=== PATIENT | male | born 2000 ===

== ENCOUNTER 2020-01-24 04:15 | Emergency (ER) | payer OTHER, BC ==
[2020-01-24] MEDS ORDERED: SODIUM CHLORIDE 0.9% 1,000 ML IV STA (04:57)
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
[2020-01-24 05:20] LABS: Basophils # (A) 0.1 k/uL (0-0.2); Basophils % (A) 1 %; Eosinophils # (A) 0.1 k/uL (0-0.7); Eosinophils % (A) 1 %; HCT 46.8 % (39.0-53.0); HGB 16.4 gm/dL (13.0-17.5); Lymphocytes # (A) 1.3 k/uL (1.0-4.8); Lymphocytes % (A) 15 %; MCH 30.9 pg (25.0-35.0); Mean Platelet Volume 6.8; Monocytes # (A) 0.4 k/uL (0-1.0); Monocytes % (A) 5 %; Neutrophils # (A) 6.6 k/uL (1.3-7.7); Neutrophils % (A) 77 %; Platelet Count 239 k/uL (150-450); RBC 5.32 m/uL (4.30-5.90); RDW 12.4 % (11.5-15.5); WBC 8.6 k/uL (3.8-10.6)
[2020-01-24 05:28] LABS: ALT 21 U/L (4-49); AST 25 U/L (17-59); African American GFR (CKD) >90 (>60 ml/min/1.73 sqM); Albumin 4.6 g/dL (3.5-5.0); Alcohol <10 mg/dL; Alkaline Phosphatase 59 U/L (38-126); Anion Gap 7 mmol/L; Blood Urea Nitrogen 15 mg/dL (9-20); Calcium 9.5 mg/dL (8.4-10.2); Carbon Dioxide 27 mmol/L (22-30); Chloride 105 mmol/L (98-107); Creatine Kinase 172 U/L (55-170); Glucose 111 mg/dL (74-99); Non-African American GFR(CKD) >90 (>60 ml/min/1.73 sqM); Sodium 139 mmol/L (137-145); Total Bilirubin 0.6 mg/dL (0.2-1.3); Total Protein 7.4 g/dL (6.3-8.2)
[2020-01-24 05:40] LABS: Partial Thromboplastin Time 24.8 sec (22.0-30.0); Prothrombin Time 10.3 sec (9.0-12.0)
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
[2020-01-24 06:58] LABS: Appearance,Urine Clear (Clear); Bilirubin,Urine Negative (Negative); Blood,Urine Negative (Negative); Color,Urine Light Yellow; Glucose,Urine (UA) Negative (Negative); Ketones,Urine Negative (Negative); Leukocyte Esterase,Urine Negative (Negative); Nitrite,Urine Negative (Negative); Protein,Urine Negative (Negative); Urobilinogen,Urine <2.0 mg/dL (<2.0)
[2020-01-24 07:24] VITALS: BP 117/81; PULSE 92; RESP 18; TEMP 98.4
[2020-01-24 07:35] LABS: Amphetamine Screen,Urine Not Detected (NotDetected); Barbiturate Screen,Urine Not Detected (NotDetected); Benzodiazepines Screen,Urine Not Detected (NotDetected); Cocaine Screen,Urine Not Detected (NotDetected); Methadone Screen, Urine Not Detected (NotDetected); Opiate Screen,Urine Not Detected (NotDetected); Oxycodone Screen, Urine Not Detected (NotDetected); Phencyclidine Screen,Urine Not Detected (NotDetected); Tricyclic Antidepressant,Urine Not Detected (NotDetected); Urn Cannabinoid Scrn Not Detected (NotDetected)
== END 2020-01-24 07:24 | disposition home or self-care (01) ==
LOC: EC 04:15
DX: S09.90XA Unspecified injury of head, initial encounter (principal); M54.2 Cervicalgia; R07.89 Other chest pain; M25.511 Pain in right shoulder; V47.5XXA Car driver injured in collision with fixed or stationary object in traffic accident, initial encounter; Y92.410 Unspecified street and highway as the place of occurrence of the external cause
CPT/HCPCS: 36415; 93005; 86900; 86901; 80053; 82550; 84484; 85025; 85610; 85730; 86850; 81003; 80306; 80320; 72125; 70450; 71260; 74177; 99285; 96360; Q9967

== ENCOUNTER → 2024-01-05 | Outpatient (CLI) | payer OTHER ==
--- NOTE | 2024-01-09 23:19 | P.PCN ---
Date of Procedure: 01/05/24 Operative Findings: Sleep study testing Date of service is 01/05/2024 History A 23-year-old male patient, referred to me for evaluation of sleep apnea. The patient has loud snoring and the patient has noted to have apneas by his girlfriend. The patient has gained approximately 40 pounds over the past 5 years and is in the process of losing weight. His current Hoxie score is at 9. No major comorbidities. The patient accordingly was given a home sleep study to evaluate the presence of sleep apnea. Noted the patient has significant enlarged tonsils and the patient carries a Mallampati class IV. Physical findings The patient has a body mass index of 35.7 with a weight of 221 pounds. Technical description The [employer] system was used to complete his home sleep study. This is a type III home sleep study evaluation. The total recording duration was 9 hours and 57 minutes. The study started at 11:18 PM and ended at 9:16 AM. There was a total of 9 hours and 42 minutes of flow and oxygen saturation evaluation. Results The respiratory analysis showed a total of 39 obstructive apneas and a total of 140 obstructive hypopneas. The resulting AHI was 18.4 consistent with moderately severe obstructive sleep apnea Oxygenation analysis The baseline pulse ox while the patient was awake was 97%. Average pulse ox during sleep was 94%. The minimum pulse ox was 80% and the patient spent only 4 minutes of the sleep time below pulse ox of 89% Cardiac summary Average heart rate was 62 with a minimum heart rate of 47 and a maximum heart rate of 103 Assessment Obstructive sleep apnea, moderately severe with an AHI of 18. No significant nocturnal oxygen desaturations. The patient carries an Hoxie score of 6. Tonsillar enlargement, bilateral with a Mallampati class IV no major comorbidities Plan Will discuss treatment options with the patient including CPAP therapy. It will be worthwhile doing an ENT evaluation based on his history of tonsillar enlargement. Treatment options will be discussed in the office and we will make further recommendations regarding his choice of treatment. Continue efforts to lose weight. Maintain good sleep hygiene measures. Will follow.
== END ==
LOC: 3 N SLEEP 12:44
PROVIDERS: ATTEND Internal Medicine Critical Care Medicine
DX: G47.33 Obstructive sleep apnea (adult) (pediatric) (principal); J35.1 Hypertrophy of tonsils